=== PATIENT | female | born 1955 | race Caucasian/White ===

== ENCOUNTER → 2016-07-10 | Outpatient (CLI) | payer OTHER ==
[~2016-07-10] MED LIST: BENICAR HCT 201 EACH PO; CALTRATE PLUS1 EACH PO; DULERA 100 MCG/13 GM IH; ESTROVEN ENERG1 EACH PO; FIORICET 50-301 EACH PO; HYDROCHLOROTH12.5 M3 PO; LIDOCAINE700 MG TD; MOBIC15 MG PO; NASONEX17 GM BOTH NARES; PROTONIX40 MG PO; SINGULAIR10 MG PO; VYVANSE30 MG PO; ZANAFLEX2 MG PO
== END | disposition home or self-care (01) ==
LOC: CDC 12:04
DX: Z01.810 Encounter for preprocedural cardiovascular examination (principal); R00.0 Tachycardia, unspecified; I51.7 Cardiomegaly
CPT/HCPCS: 93000

== ENCOUNTER 2016-07-15 07:12 | Day surgery (SDC) | payer OTHER ==
[~2016-07-15] VITALS: Ht 162.6 cm; Wt 76.4 kg
[2016-07-15 08:24] VITALS: BP 129/76
[2016-07-15 10:29] VITALS: BP 132/69
[2016-07-15 11:15] VITALS: BP 125/76
== END 2016-07-15 11:26 | disposition home or self-care (01) ==
LOC: SDC
DX: N95.0 Postmenopausal bleeding (principal); Z79.899 Other long term (current) drug therapy; Z80.49 Family history of malignant neoplasm of other genital organs; K21.0 Gastro-esophageal reflux disease with esophagitis; I10 Essential (primary) hypertension; Z82.49 Family history of ischemic heart disease and other diseases of the circulatory system; Z80.42 Family history of malignant neoplasm of prostate; Z80.3 Family history of malignant neoplasm of breast; Z88.0 Allergy status to penicillin; Z88.1 Allergy status to other antibiotic agents; Z88.8 Allergy status to other drugs, medicaments and biological substances; Z88.5 Allergy status to narcotic agent; Z91.040 Latex allergy status; Z91.09 Other allergy status, other than to drugs and biological substances
CPT/HCPCS: 88305; J1100; J1885; J2250; J2405; J3010